=== PATIENT | female | born 1935 | race Caucasian/White ===

== ENCOUNTER 2020-04-27 14:45 | Inpatient (IN) | payer MEDICARE ==
[2020-04-27] MEDS: Carvedilol 6.25 MG TAB PO SCH (16:50)
[2020-04-27] MEDS: Warfarin Sodium 3 MG TAB PO SCH (16:52)
[2020-04-27] MEDS: HYDROcodone/Acetaminophen 5/325 mg Tablet PO PRN (20:20)
[2020-04-27] MEDS: Gabapentin 300 MG CAP PO SCH (20:22)
[2020-04-27] MEDS: Atorvastatin Calcium 40 MG TAB PO SCH (20:22)
[2020-04-28] MEDS ORDERED: FLU VACC QS2020-21(65YR UP)/PF 240 MCG/0.7 ML SYRINGE IM ONE (09:00)
[2020-04-28] MEDS: Furosemide 20 MG TAB PO SCH (09:10)
[2020-04-28] MEDS: Hydrochlorothiazide 25 MG TAB PO SCH (09:10)
[2020-04-28] MEDS: Lisinopril 20 MG TAB PO SCH (09:10)
[2020-04-28] MEDS: Gabapentin 300 MG CAP PO SCH ×3 (09:10→20:41)
[2020-04-28] MEDS: Carvedilol 6.25 MG TAB PO SCH ×2 (09:11→17:26)
[2020-04-28] MEDS: HYDROcodone/Acetaminophen 5/325 mg Tablet PO PRN ×2 (09:15→15:20)
[2020-04-28] MEDS ORDERED: Warfarin Sodium 7.5 MG TAB PO SCH (17:00)
[2020-04-28] MEDS: Warfarin Sodium 2.5 MG TAB PO SCH (17:26)
[2020-04-28] MEDS: Atorvastatin Calcium 40 MG TAB PO SCH (20:41)
[2020-04-29 05:28] LABS: INR-International Normal Ratio 2.6; Prothrombin Time 28.4 sec (12.0-14.7)
[2020-04-29] MEDS: Lisinopril 20 MG TAB PO SCH (09:08)
[2020-04-29] MEDS: Gabapentin 300 MG CAP PO SCH ×3 (09:08→20:30)
[2020-04-29] MEDS: Carvedilol 6.25 MG TAB PO SCH ×2 (09:08→16:56)
[2020-04-29] MEDS: Hydrochlorothiazide 25 MG TAB PO SCH (09:09)
[2020-04-29] MEDS: Furosemide 20 MG TAB PO SCH (09:09)
[2020-04-29] MEDS: HYDROcodone/Acetaminophen 5/325 mg Tablet PO PRN (09:13)
[2020-04-29] MEDS: Warfarin Sodium 3 MG TAB PO SCH (16:56)
[2020-04-29] MEDS: Atorvastatin Calcium 40 MG TAB PO SCH (20:21)
[2020-04-30 06:33] LABS: INR-International Normal Ratio 2.8
[2020-04-30] MEDS: Lisinopril 20 MG TAB PO SCH (08:40)
[2020-04-30] MEDS: Gabapentin 300 MG CAP PO SCH ×3 (08:41→20:20)
[2020-04-30] MEDS: Hydrochlorothiazide 25 MG TAB PO SCH (08:41)
[2020-04-30] MEDS: Carvedilol 6.25 MG TAB PO SCH ×2 (08:41→17:09)
[2020-04-30] MEDS: Furosemide 20 MG TAB PO SCH (08:42)
[2020-04-30] MEDS: HYDROcodone/Acetaminophen 5/325 mg Tablet PO PRN (08:42)
[2020-04-30] MEDS: Warfarin Sodium 2.5 MG TAB PO SCH (17:21)
[2020-04-30] MEDS: Atorvastatin Calcium 40 MG TAB PO SCH (20:20)
[2020-05-01 05:11] LABS: INR-International Normal Ratio 2.9; Prothrombin Time 30.6 sec (12.0-14.7)
[2020-05-01] MEDS: Lisinopril 20 MG TAB PO SCH (08:52)
[2020-05-01] MEDS: Carvedilol 6.25 MG TAB PO SCH ×2 (08:52→16:30)
[2020-05-01] MEDS: Gabapentin 300 MG CAP PO SCH ×3 (08:52→20:23)
[2020-05-01] MEDS: Hydrochlorothiazide 25 MG TAB PO SCH (08:53)
[2020-05-01] MEDS: Furosemide 20 MG TAB PO SCH (08:53)
[2020-05-01] MEDS: HYDROcodone/Acetaminophen 5/325 mg Tablet PO PRN (10:46)
[2020-05-01] MEDS: Warfarin Sodium 3 MG TAB PO SCH (16:35)
[2020-05-01] MEDS: Atorvastatin Calcium 40 MG TAB PO SCH (20:29)
[2020-05-02 05:24] LABS: INR-International Normal Ratio 3.3; Prothrombin Time 33.3 sec (12.0-14.7)
[2020-05-02] MEDS ORDERED: Milk Of Magnesia 30 ML UDCUP PO PRN (08:20)
[2020-05-02] MEDS ORDERED: Warfarin Sodium 3 MG TAB PO SCH (08:30)
[2020-05-02] MEDS: Docusate 100 MG CAP PO SCH (09:11)
[2020-05-02] MEDS: Lisinopril 20 MG TAB PO SCH (09:11)
[2020-05-02] MEDS: Furosemide 20 MG TAB PO SCH (09:12)
[2020-05-02] MEDS: Hydrochlorothiazide 25 MG TAB PO SCH (09:12)
[2020-05-02] MEDS: Gabapentin 300 MG CAP PO SCH ×3 (09:12→21:05)
[2020-05-02] MEDS: Carvedilol 6.25 MG TAB PO SCH ×2 (09:12→16:47)
[2020-05-02] MEDS: Atorvastatin Calcium 40 MG TAB PO SCH (21:05)
[2020-05-03 05:20] LABS: INR-International Normal Ratio 2.8
[2020-05-03] MEDS: Carvedilol 6.25 MG TAB PO SCH ×2 (09:49→17:13)
[2020-05-03] MEDS: Lisinopril 20 MG TAB PO SCH (09:50)
[2020-05-03] MEDS: Hydrochlorothiazide 25 MG TAB PO SCH (09:50)
[2020-05-03] MEDS: Furosemide 20 MG TAB PO SCH (09:51)
[2020-05-03] MEDS: Gabapentin 300 MG CAP PO SCH ×3 (09:51→20:49)
[2020-05-03] MEDS: Docusate 100 MG CAP PO SCH (09:57)
[2020-05-03] MEDS: Warfarin Sodium 3 MG TAB PO SCH (17:12)
[2020-05-03] MEDS: Atorvastatin Calcium 40 MG TAB PO SCH (20:49)
[2020-05-03] MEDS: HYDROcodone/Acetaminophen 5/325 mg Tablet PO PRN (22:41)
[2020-05-04 08:30] LABS: INR-International Normal Ratio 2.1; Prothrombin Time 23.7 sec (12.0-14.7)
[2020-05-04] MEDS: Furosemide 20 MG TAB PO SCH (09:35)
[2020-05-04] MEDS: Docusate 100 MG CAP PO SCH (09:35)
[2020-05-04] MEDS: Hydrochlorothiazide 25 MG TAB PO SCH (09:35)
[2020-05-04] MEDS: Lisinopril 20 MG TAB PO SCH (09:35)
[2020-05-04] MEDS: Gabapentin 300 MG CAP PO SCH ×3 (09:35→20:30)
[2020-05-04] MEDS: Carvedilol 6.25 MG TAB PO SCH (09:36)
[2020-05-04] MEDS: HYDROcodone/Acetaminophen 5/325 mg Tablet PO PRN (10:19)
[2020-05-04 11:15] LABS: #Basophils 0.1 thou/uL (0.0-0.2); #Eosinphils 0.5 thou/uL (0.0-0.7); #Lymphocytes 2.3 thou/uL (1.20-3.40); #Monocytes 0.6 thou/uL (0.11-0.59); #Neutrophils 4.4 thou/uL (1.40-6.50); %Basophils 1.4 % (0.0-1.0); %Eosinophils 6.3 % (0.0-10.0); %Lymphocytes 29.2 % (21.0-51.0); %Monocytes 7.9 % (0.0-10.0); %Neutrophils 55.3 % (42.0-75.0); Hemoglobin 10.5 g/dL (12.0-16.0); Mean Corpuscular HGB CONC 30.7 g/dL (32.0-36.0); Mean Corpuscular Hemoglobin 30.6 pg (27.0-31.0); Mean Corpuscular Volume 99.7 fL (78.0-98.0); Mean Platelet Volume 7.4 fL (7.4-10.4); Platelet Count 297 thou/uL (130-400); RBC Distribution Width 13.6 % (11.5-14.5); Red Blood Cell (RBC) Count 3.42 mill/uL (4.20-5.40); White Blood Cell (WBC) Count 7.9 thou/uL (4.8-10.8)
[2020-05-04 12:10] LABS: ALT (SGPT) 19 U/L (8-55); AST (SGOT) 18 U/L (5-34); Albumin 3.1 g/dL (3.4-4.8); Alkaline Phosphatase 95 U/L (40-110); Anion Gap 20 mmol/L (10-20); BUN (Urea Nitrogen) 43 mg/dL (9.8-20.1); Bilirubin, Total 0.6 mg/dL (0.2-1.2); Calc. Creatinine Clearance 64 mL/min (70-130); Calcium 9.1 mg/dL (7.8-10.44); Carbon Dioxide 25 mmol/L (23-31); Chloride 97 mmol/L (98-107); Estimated GFR-MDRD 34; Globulin 3.8 g/dL (2.4-3.5); Glucose 117 mg/dL (83-110); Potassium 4.2 mmol/L (3.5-5.1); Protein, Total 6.9 g/dL (6.0-8.3); Sodium 138 mmol/L (136-145)
[2020-05-04] MEDS: Ibuprofen 600 MG TAB PO PRN (14:43)
[2020-05-04] MEDS: Warfarin Sodium 3 MG TAB PO SCH (16:34)
[2020-05-04] MEDS: Atorvastatin Calcium 40 MG TAB PO SCH (20:30)
[2020-05-05 05:22] LABS: INR-International Normal Ratio 2.3; Prothrombin Time 25.9 sec (12.0-14.7)
[2020-05-05] MEDS: Gabapentin 300 MG CAP PO SCH ×3 (08:25→20:46)
[2020-05-05] MEDS: Docusate 100 MG CAP PO SCH (08:26)
[2020-05-05] MEDS: Ibuprofen 600 MG TAB PO PRN (08:26)
[2020-05-05] MEDS: Warfarin Sodium 3 MG TAB PO SCH (17:12)
[2020-05-05] MEDS: Atorvastatin Calcium 40 MG TAB PO SCH (20:46)
[2020-05-06 05:35] LABS: Anion Gap 15 mmol/L (10-20); BUN (Urea Nitrogen) 51 mg/dL (9.8-20.1); Calc. Creatinine Clearance 76 mL/min (70-130); Calcium 8.6 mg/dL (7.8-10.44); Carbon Dioxide 29 mmol/L (23-31); Chloride 100 mmol/L (98-107); Estimated GFR-MDRD 41; Glucose 120 mg/dL (83-110); INR-International Normal Ratio 2.6; Potassium 4.2 mmol/L (3.5-5.1); Prothrombin Time 27.7 sec (12.0-14.7); Sodium 140 mmol/L (136-145)
[2020-05-06] MEDS: Docusate 100 MG CAP PO SCH (08:53)
[2020-05-06] MEDS: Gabapentin 300 MG CAP PO SCH ×3 (08:54→21:31)
[2020-05-06] MEDS: HYDROcodone/Acetaminophen 5/325 mg Tablet PO PRN (15:56)
[2020-05-06] MEDS: Warfarin Sodium 3 MG TAB PO SCH (15:58)
[2020-05-06] MEDS: Atorvastatin Calcium 40 MG TAB PO SCH (21:31)
[2020-05-07 05:40] LABS: INR-International Normal Ratio 2.8
[2020-05-07] MEDS: Docusate 100 MG CAP PO SCH (08:44)
[2020-05-07] MEDS: Gabapentin 300 MG CAP PO SCH ×3 (08:44→21:02)
[2020-05-07] MEDS: HYDROcodone/Acetaminophen 5/325 mg Tablet PO PRN ×2 (08:48→17:07)
[2020-05-07] MEDS: Warfarin Sodium 3 MG TAB PO SCH (17:09)
[2020-05-07] MEDS: Atorvastatin Calcium 40 MG TAB PO SCH (21:02)
[2020-05-08] MEDS: Gabapentin 300 MG CAP PO SCH ×3 (10:33→20:14)
[2020-05-08] MEDS: Docusate 100 MG CAP PO SCH (10:33)
[2020-05-08] MEDS: HYDROcodone/Acetaminophen 5/325 mg Tablet PO PRN (10:35)
[2020-05-08] MEDS: Warfarin Sodium 3 MG TAB PO SCH (16:57)
[2020-05-08] MEDS: Atorvastatin Calcium 40 MG TAB PO SCH (20:14)
[2020-05-09] MEDS: Gabapentin 300 MG CAP PO SCH ×3 (10:25→21:20)
[2020-05-09] MEDS: Docusate 100 MG CAP PO SCH (10:25)
[2020-05-09] MEDS: Warfarin Sodium 3 MG TAB PO SCH (17:04)
[2020-05-09] MEDS: HYDROcodone/Acetaminophen 5/325 mg Tablet PO PRN (19:04)
[2020-05-09] MEDS: Atorvastatin Calcium 40 MG TAB PO SCH (21:20)
[2020-05-10 05:57] LABS: INR-International Normal Ratio 2.8; Prothrombin Time 29.6 sec (12.0-14.7)
[2020-05-10] MEDS: Docusate 100 MG CAP PO SCH (07:42)
[2020-05-10] MEDS: Ibuprofen 600 MG TAB PO PRN (07:43)
[2020-05-10] MEDS: Gabapentin 300 MG CAP PO SCH ×3 (07:43→19:45)
[2020-05-10] MEDS ORDERED: Calcium Carbonate 500 MG ChewTAB PO PRN (12:41)
[2020-05-10] MEDS: Warfarin Sodium 2 MG TAB PO SCH (17:11)
[2020-05-10] MEDS: Atorvastatin Calcium 40 MG TAB PO SCH (19:44)
[2020-05-10] MEDS: HYDROcodone/Acetaminophen 5/325 mg Tablet PO PRN (19:45)
[2020-05-11 04:29] LABS: INR-International Normal Ratio 2.4; Prothrombin Time 26.6 sec (12.0-14.7)
[2020-05-11] MEDS: Carvedilol 6.25 MG TAB PO SCH ×2 (08:54→16:42)
[2020-05-11] MEDS: Docusate 100 MG CAP PO SCH (08:58)
[2020-05-11] MEDS: Ibuprofen 600 MG TAB PO PRN (08:58)
[2020-05-11] MEDS: Gabapentin 300 MG CAP PO SCH ×3 (08:58→20:08)
[2020-05-11] MEDS: Warfarin Sodium 2 MG TAB PO SCH (16:45)
[2020-05-11] MEDS: Atorvastatin Calcium 40 MG TAB PO SCH (20:08)
[2020-05-11] MEDS: HYDROcodone/Acetaminophen 5/325 mg Tablet PO PRN (20:08)
[2020-05-12 05:09] LABS: INR-International Normal Ratio 2.6; Prothrombin Time 28.2 sec (12.0-14.7)
[2020-05-12] MEDS: Docusate 100 MG CAP PO SCH (08:30)
[2020-05-12] MEDS: Gabapentin 300 MG CAP PO SCH ×3 (08:30→20:10)
[2020-05-12] MEDS: Carvedilol 6.25 MG TAB PO SCH ×2 (08:30→16:42)
[2020-05-12] MEDS: HYDROcodone/Acetaminophen 5/325 mg Tablet PO PRN (13:33)
[2020-05-12] MEDS: Warfarin Sodium 2 MG TAB PO SCH (16:45)
[2020-05-12] MEDS: Atorvastatin Calcium 40 MG TAB PO SCH (20:10)
[2020-05-13 05:09] LABS: INR-International Normal Ratio 2.6
[2020-05-13 09:23] VITALS: BMI 44.2
[2020-05-13] MEDS: Carvedilol 6.25 MG TAB PO SCH ×2 (10:13→16:43)
[2020-05-13] MEDS: Docusate 100 MG CAP PO SCH (10:13)
[2020-05-13] MEDS: Gabapentin 300 MG CAP PO SCH ×3 (10:13→20:02)
[2020-05-13] MEDS: Warfarin Sodium 3 MG TAB PO SCH (16:44)
[2020-05-13] MEDS: HYDROcodone/Acetaminophen 5/325 mg Tablet PO PRN (16:46)
[2020-05-13] MEDS: Atorvastatin Calcium 40 MG TAB PO SCH (20:02)
[2020-05-14 05:13] LABS: INR-International Normal Ratio 2.3; Prothrombin Time 25.7 sec (12.0-14.7)
[2020-05-14] MEDS: Carvedilol 6.25 MG TAB PO SCH ×2 (10:31→16:08)
[2020-05-14] MEDS: Gabapentin 300 MG CAP PO SCH ×3 (10:31→21:05)
[2020-05-14] MEDS: Docusate 100 MG CAP PO SCH (10:31)
[2020-05-14] MEDS: Warfarin Sodium 3 MG TAB PO SCH (16:35)
[2020-05-14] MEDS: HYDROcodone/Acetaminophen 5/325 mg Tablet PO PRN (18:40)
[2020-05-14] MEDS: Atorvastatin Calcium 40 MG TAB PO SCH (21:05)
[2020-05-15 05:27] LABS: INR-International Normal Ratio 2.7; Prothrombin Time 29.1 sec (12.0-14.7)
[2020-05-15] MEDS: Carvedilol 6.25 MG TAB PO SCH ×2 (09:04→17:19)
[2020-05-15] MEDS: Lidocaine 5% Patch TD SCH (09:05)
[2020-05-15] MEDS: Docusate 100 MG CAP PO SCH (09:05)
[2020-05-15] MEDS: Gabapentin 300 MG CAP PO SCH ×3 (09:05→21:47)
[2020-05-15] MEDS: Warfarin Sodium 3 MG TAB PO SCH (17:19)
[2020-05-15] MEDS ORDERED: Lidocaine Patch Removal 1 EACH TOP SCH (20:00)
[2020-05-15] MEDS: Atorvastatin Calcium 40 MG TAB PO SCH (21:47)
[2020-05-16 05:28] LABS: INR-International Normal Ratio 2.7; Prothrombin Time 28.8 sec (12.0-14.7)
[2020-05-16] MEDS: HYDROcodone/Acetaminophen 5/325 mg Tablet PO PRN (08:27)
[2020-05-16] MEDS: Docusate 100 MG CAP PO SCH (08:29)
[2020-05-16] MEDS: Carvedilol 6.25 MG TAB PO SCH (08:30)
[2020-05-16] MEDS: Gabapentin 300 MG CAP PO SCH (08:30)
[2020-05-16] MEDS: Lidocaine 5% Patch TD SCH (08:33)
--- NOTE | 2020-05-16 09:18 | DIS ---
DATE OF ADMISSION: 04/27/2020 DATE OF DISCHARGE: 05/16/2020 ADMISSION DIAGNOSES: 1. Physical deconditioning. 2. Morbid obesity. 3. Paroxysmal atrial fibrillation. 4. Hypertension. 5. Dyslipidemia. 6. Chronic obstructive pulmonary disease. 7. Chronic diastolic congestive heart failure. 8. Gastroesophageal reflux disease. PROCEDURES: None. HOSPITAL COURSE: An 85-year-old female presented to our facility at [facility] to participate with physical therapy and occupational therapy status post admission at [facility] in [place], where she presented with complaints of right-sided weakness and progressive physical deconditioning. She had workup including imaging, which showed no carotid stenosis, no acute narrowing of the vasculature in the [place] and no acute hemorrhage. Echocardiogram showed ejection fraction of 50% to 55%. An MRI of the brain revealed significant small-vessel disease, but no evidence of acute stroke. Of note, the patient was previously hospitalized and treated for COVID positive pneumonia from 03/07/2022 03/10/2020 with her symptoms of right-sided weakness developing on 03/13/2020. She was denied transition to inpatient rehab per insurance, but was able to transition here for longterm and rehabilitation. During her stay, her usual medications were continued initially until anuradha meyers was called secondary to presyncope and hypotension. At this time, all of her usual blood pressure medications were discontinued. These medications continued to be held until re-initiation of Coreg several days later. Otherwise, none of her usual BP medications including Cardizem, lisinopril, hydrochlorothiazide were resumed. She did progress in regards to her functional status and has otherwise done well during her stay. She was unable to effectively wean from supplemental oxygen and will need to continue this at home and wean as tolerated. At this time, she is able to transition to her home setting and has been set up with [facility] to continue her therapy. She has been set up with the appropriate durable medical equipment including bedside commode; she already has supplemental home oxygen, along with a wheelchair and hospital bed. DISPOSITION: The patient will discharge home and she may follow up with her primary care provider in a week, Dr. Bill Thomas. She will have [facility] for continuation of physical therapy and occupational therapy. DISCHARGE MEDICATIONS: Include: 1. Atorvastatin 40 mg at bedtime. 2. DuoNeb q.6 hours p.r.n. 3. Calcium carbonate 1000 mg q.i.d. p.r.n. 4. Coreg 6.25 mg b.i.d. 5. Docusate sodium 100 mg daily. 6. Gabapentin 300 mg t.i.d. 7. Ibuprofen 600 mg b.i.d. p.r.n. 8. Pantoprazole 40 mg daily. 9. Coumadin 6 mg daily. Total discharge time for this patient was greater than 30 minutes. Job ID: [id number] [id number]
[2020-05-16 13:51] VITALS: BP 133/80; TEMP 98.1
== END 2020-05-16 13:15 | disposition home health service (06) | DRG 948 ==
LOC: BURMED 14:45 → UNDOADMIN 14:54
PROVIDERS: ADMIT Family Medicine; ATTEND Family Medicine
DX: R53.1 Weakness (principal); I50.32 Chronic diastolic (congestive) heart failure; Z68.41 Body mass index [BMI] 40.0-44.9, adult; N17.9 Acute kidney failure, unspecified; I13.2 Hypertensive heart and chronic kidney disease with heart failure and with stage 5 chronic kidney disease, or end stage renal disease; Z66 Do not resuscitate; R53.81 Other malaise; N18.30 Chronic kidney disease, stage 3 unspecified; E66.01 Morbid (severe) obesity due to excess calories; E78.5 Hyperlipidemia, unspecified; K21.9 Gastro-esophageal reflux disease without esophagitis; J44.9 Chronic obstructive pulmonary disease, unspecified; I48.0 Paroxysmal atrial fibrillation; I95.9 Hypotension, unspecified; G89.29 Other chronic pain; M54.9 Dorsalgia, unspecified; R09.02 Hypoxemia; Z88.0 Allergy status to penicillin; Z88.2 Allergy status to sulfonamides
CPT/HCPCS: 36415; 80048; 80053; 84484; 85025; 85610; 90471; 90662; G0008